=== PATIENT | female | born 1940 | race Caucasian/White ===

== ENCOUNTER 2024-11-05 20:53 | Outpatient (REF) | payer MEDICARE, SELFPAY ==
[2024-11-05 19:38] LABS: Abs Immature Grans 0.02 10^3/uL (0.0-0.06); Absolute Basophil Count 0.02 10^3/uL (0.0-0.2); Absolute Eosinophil Count 0.12 10^3/uL (0.0-0.7); Absolute Lymphocyte Count 0.33 10^3/uL (1.2-3.4); Absolute Monocyte Count 0.49 10^3/uL (0.1-0.8); Absolute Neutrophil Count 3.77 10^3/uL (1.2-6.7); Basophils % 0.4 %; Eosinophils % 2.5 %; HCT 35.9 % (36.0-46.0); HGB 11.6 g/dL (11.2-15.7); Immature Grans % 0.4 %; Lymphocytes % 6.9 %; MCH 32.9 pg (27.0-33.0); MCHC 32.3 % (32.0-36.0); MCV 102 fL (80-95); MPV 9.9 fL (8.0-11.0); Monocytes % 10.3 %; Neutrophils % 79.5 %; Platelet Count 285 10^3/uL (130-400); RBC 3.53 10^6/uL (3.93-5.22); RDW 14.6 % (11.7-14.6); RDW-SD 54.7 fL; WBC 4.75 10^3/uL (4.4-10.8)
[2024-11-05 20:25] LABS: Hemoglobin A1C 6.6 % (<5.7)
[2024-11-05 20:55] LABS: ALT 24 U/L (14-59); AST 15 U/L (15-37); Albumin 3.7 g/dL (3.4-5.0); Alkaline Phosphatase 91 U/L (46-116); Anion Gap 6.5 mmol/L (3-11); BUN 17 mg/dL (7-18); Bilirubin, Total 0.24 mg/dL (0.2-1.0); CO2 31.5 mmol/L (21.0-32.0); CREATININE 0.8 mg/dL (0.55-1.02); Calcium 9.4 mg/dL (8.5-10.1); Chloride 104 mmol/L (98-107); Estimated GFR 73.06 (mL/min/1.73m2); Ferritin 104 ng/mL (8-252); Folate 16.4 ng/mL (8.6-20.0); Glucose 163 mg/dL (74-106); Magnesium 2.2 mg/dL (1.8-2.4); Potassium 4.4 mmol/L (3.5-5.1); Sodium 142 mmol/L (136-145); TSH (W/Ref FT4) 4.11 uIU/mL (0.36-3.74); Total Protein 7.1 g/dL (6.4-8.2); Vitamin B12 351 pg/mL (193-986); Vitamin D 25 Total 24.8 ng/mL (30-100)
[2024-11-05 21:18] LABS: NT-proBNP 629 pg/mL (<300)
[2024-11-05 21:34] LABS: Iron 47 ug/dL (50-170); Total Iron Binding Capacity 330 ug/dL (250-450); Transferrin Sat 14 % (15-50)
[2024-11-06 22:26] LABS: T4, Free 1.2 ng/dL (0.8-2.2)
[2024-11-08 16:59] LABS: Lamotrigine 2.3 mcg/mL (3.0-15.0)
== END 2024-11-05 20:54 | disposition home or self-care (01) ==
LOC: LBN 20:53
PROVIDERS: PCP Legal Medicine; Visit Provider Nurse Practitioner Gerontology
DX: E11.9 Type 2 diabetes mellitus without complications (principal); E03.9 Hypothyroidism, unspecified; R53.82 Chronic fatigue, unspecified; I11.9 Hypertensive heart disease without heart failure; G89.4 Chronic pain syndrome; D52.9 Folate deficiency anemia, unspecified; E83.42 Hypomagnesemia
CPT/HCPCS: 80053; 80175; 82306; 82607; 82728; 82746; 83036; 83540; 83550; 83735; 83880; 84439; 84443; 85025

== ENCOUNTER 2024-12-21 17:54 | Outpatient (REF) | payer MEDICARE, SELFPAY ==
[2024-12-21 17:24] LABS: Abs Immature Grans 0.02 10^3/uL (0.0-0.06); Absolute Basophil Count 0.02 10^3/uL (0.0-0.2); Absolute Eosinophil Count 0.12 10^3/uL (0.0-0.7); Absolute Lymphocyte Count 0.34 10^3/uL (1.2-3.4); Absolute Monocyte Count 0.65 10^3/uL (0.1-0.8); Absolute Neutrophil Count 4.19 10^3/uL (1.2-6.7); Basophils % 0.4 %; Eosinophils % 2.2 %; HCT 34.5 % (36.0-46.0); HGB 11.2 g/dL (11.2-15.7); Immature Grans % 0.4 %; Lymphocytes % 6.4 %; MCH 32.6 pg (27.0-33.0); MCHC 32.5 % (32.0-36.0); MCV 100 fL (80-95); MPV 10.2 fL (8.0-11.0); Monocytes % 12.2 %; Neutrophils % 78.4 %; Platelet Count 234 10^3/uL (130-400); RBC 3.44 10^6/uL (3.93-5.22); RDW-SD 59.7 fL; WBC 5.34 10^3/uL (4.4-10.8)
[2024-12-21 17:32] LABS: Anion Gap 11.2 mmol/L (3-11); BUN 29 mg/dL (7-18); CO2 28.8 mmol/L (21.0-32.0); Calcium 9.8 mg/dL (8.5-10.1); Chloride 104 mmol/L (98-107); Glucose 188 mg/dL (74-106); Magnesium 1.8 mg/dL (1.8-2.4); Potassium 4.4 mmol/L (3.5-5.1); Sodium 144 mmol/L (136-145)
[2024-12-24 12:29] LABS: Lamotrigine 4.8 mcg/mL (3.0-15.0)
== END 2024-12-21 17:55 | disposition home or self-care (01) ==
LOC: LBN 17:54
PROVIDERS: PCP Legal Medicine; Visit Provider Nurse Practitioner Gerontology
DX: E83.42 Hypomagnesemia (principal); D50.9 Iron deficiency anemia, unspecified; E87.6 Hypokalemia
CPT/HCPCS: 80048; 80175; 83735; 85025

== ENCOUNTER 2025-02-18 10:52 | Emergency (ER) | payer MEDICARE, SELFPAY ==
[2025-02-18] VITALS (13 sets, daily range): BP systolic 142–155; BP diastolic 51–104; PULSE 57–74; RESP 12–24; TEMP 36.4; O2SAT 97–99
--- NOTE | 2025-02-18 11:15 | DI.RAD_ITS ---
Exam(s) XR HAND RT COMPLETE EXAM: XR HAND RT COMPLETE CLINICAL HISTORY: ecchymosis post fall. TECHNIQUE: 2D digital imaging was performed. COMPARISON: No exams were available for comparison FINDINGS: 3 views No evidence of acute fracture in the hand. No radiopaque foreign bodies. There are moderate degenerative in all of the DIP joints. Metacarpophalangeal joints appear unremarkable. Mild degenerative changes in the PIP joints. No erosions. IMPRESSION: No head fractures evident. DATA REPOSITORY: RADIATION DOSE DELIVERED:
--- NOTE | 2025-02-18 11:15 | DI.RAD_ITS ---
Exam(s) XR KNEE RT 3V AP,LAT,JOSE EXAM: XR KNEE RT 3V AP,LAT,JOSE CLINICAL HISTORY: pain post fall. TECHNIQUE: 2D digital imaging was performed. COMPARISON: No exams were available for comparison FINDINGS: 3 portable views No evidence of fracture nor obvious joint effusion. Mild degenerative narrowing of the medial compartment noted. No osseous lesions. No radiopaque foreign bodies. IMPRESSION: No obvious knee fracture evident. No joint effusion seen. DATA REPOSITORY: RADIATION DOSE DELIVERED:
--- NOTE | 2025-02-18 11:15 | DI.RAD_ITS ---
Exam(s) XR FEMUR RT EXAM: XR FEMUR RT CLINICAL HISTORY: pain knee and hip post fall. TECHNIQUE: 2D digital imaging was performed. COMPARISON: No exams were available for comparison FINDINGS: Two views-AP and lateral No evidence of right hip fracture. No obvious degenerative changes in the hip joint. No femur fracture. Bone density is age-appropriate. No osseous lesions evident. IMPRESSION: No evidence of right hip nor femur fracture. DATA REPOSITORY: RADIATION DOSE DELIVERED:
--- NOTE | 2025-02-18 11:15 | DI.RAD_ITS ---
Exam(s) XR CHEST 2V PA LATERAL EXAM: XR CHEST 2V PA LATERAL CLINICAL HISTORY: fall. TECHNIQUE: 2D digital imaging was performed. COMPARISON: No exams were available for comparison FINDINGS: 2 views: There is mild cardiomegaly Mediastinum not widened. No infiltrates nor pleural effusions. No pulmonary edema. No obvious fractures. IMPRESSION: No acute pulmonary findings.Mild cardiomegaly. No pulmonary edema. DATA REPOSITORY: RADIATION DOSE DELIVERED:
--- NOTE | 2025-02-18 11:15 | DI.RAD_ITS ---
Exam(s) XR WRIST RT COMPLETE EXAM: XR WRIST RT COMPLETE CLINICAL HISTORY: pain post fall. TECHNIQUE: 2D digital imaging was performed. COMPARISON: No exams were available for comparison FINDINGS: 3 views No evidence of acute fracture nor dislocation nor significant ulnar variance. Scaphoid and scapholunate distance are normal. Degenerative changes noted at the triscaphe joint. First carpometacarpal joint appears unremarkable. Incidentally noted is a corticated calcific density seen in the distal dorsal medial forearm just above the wrist level measuring 5 by 3 mm. This does not have the appearance of acute fracture fragment. This is on the dorsal-medial aspect of the. IMPRESSION: No acute fractures of the wrist. DATA REPOSITORY: RADIATION DOSE DELIVERED:
--- NOTE | 2025-02-18 11:16 | DI.RAD_ITS ---
Exam(s) XR PELVIS AP EXAM: XR PELVIS AP CLINICAL HISTORY: pain post fall. TECHNIQUE: 2D digital imaging was performed. COMPARISON: No exams were available for comparison FINDINGS: Single-view No evidence of pelvic nor hip fractures. Calcified structure above the right iliac crest may be gallstone. IMPRESSION: No pelvic nor hip fractures evident. The entire left hip is not included in the field of view. DATA REPOSITORY: RADIATION DOSE DELIVERED:
[2025-02-18] MEDS: oxyCODONE 5 MG TAB 2.5 MG PO (11:30)
--- NOTE | 2025-02-18 15:03 | W.ED.GENAD ---
Discharge Plan Disposition Patient Disposition: Home Discharge Details Clinical Impression: Contusion of hand, Contusion of knee, right Primary Care Provider: Mikala Martinez ED Provider: Shantel Calloway Home Meds and New Rx's Prescriptions: Continued bisacodyl [Laxative (bisacodyl)] 1 tab PO DAILY polyethylene glycol 3350 [ClearLax] 17 gram/dose powder 17 g PO DAILY lorazepam [Ativan] 0.5 mg tablet 0.5 mg PO DAILY acetaminophen 500 mg capsule 1,000 mg PO TID Patient Comments: For unspecified OA per [facility] 02/18/25 vitamin B complex [B-Complex] Tablet 1 tab PO DAILY olanzapine 5 mg tablet 5 mg PO BID citalopram [Celexa] 10 mg tablet 10 mg PO DAILY melatonin 3 mg capsule 3 mg PO QHS memantine [Namenda] 10 mg tablet 10 mg PO BID trazodone 50 mg tablet 50 mg PO QHS levothyroxine [Euthyrox] 175 mcg tablet 175 mcg PO DAILY metformin 500 mg tablet 500 mg PO DAILY furosemide [Lasix] 40 mg tablet 40 mg PO DAILY lamotrigine [Lamictal] 100 mg tablet 100 mg PO BID Biotene Oralbalance (glycerin) Gel 1 applic mucous membrane Q2H PRN Patient Comments: 1 inch ribbon by mouth every 2 hours PRN carboxymethylcellulose sodium [Artificial Tears (cmc)] 1 drp ophthalmic (eye) QID PRN Patient Comments: 1 solution in each eye four times daily PRN for dry eyes for Sjogren Syndrome diclofenac sodium [Arthritis Pain (diclofenac)] 1 % gel 2 g topical BID PRN Patient Comments: 2 gram apply topically per knee twice daily PRN for unspecified OA per [facility] 02/18/25 Rx Instructions: apply to single elbow, wrist or hand; for hand includes palm/fingers/back of hand Discharge Instructions Additional Instructions: keep wounds clean and dry no fracture on xrays of hand, wrist, chest, knee, or hip weightbearing as tolerated tylenol for pain return with new or worsening complaints Referrals: Mikala Martinez [Primary Care Provider, Medicine] Discharge Data Discharge Date/Time-TO BE ENTERED AT DEPARTURE: 02/18/25 14:04 HPI General Date/Time Provider Initiated Documentation: 02/18/25 10:57. HPI Narrative: The patient is an 87-year-old female with nonischemic cardiomyopathy, hypertension, anxiety, severe bundle-branch block, and dementia, presenting with worsening anxiety. She has longstanding anxiety and was started on medication a few weeks ago but feels they have been unhelpful. Her metoprolol dose was increased at this time. She feels lightheaded, overwhelmed, and nauseous. No current chest pain or shortness of breath. She states her anxiety feels similar to previous episodes. She is alert and oriented but initially stuttering and tangential. No suicidality reported. Her , who had Alzheimer's, was placed in long-term care yesterday. Despite having family living with her, she feels anxious about living independently, as she has never been left alone before. Related Data Home Medications ?Medication ?Instructions ?Recorded ?Confirmed acetaminophen 500 mg capsule 1,000 mg PO TID 02/18/25 02/18/25 bisacodyl 1 tab PO DAILY 02/18/25 02/18/25 carboxymethylcellulose sodium 1 drp ophthalmic (eye) QID PRN 02/18/25 02/18/25 citalopram 10 mg tablet (Celexa) 10 mg PO DAILY 02/18/25 02/18/25 diclofenac sodium 1 % topical gel 2 g topical BID PRN 02/18/25 02/18/25 (Arthritis Pain (diclofenac)) furosemide 40 mg tablet (Lasix) 40 mg PO DAILY 02/18/25 02/18/25 lamotrigine 100 mg tablet 100 mg PO BID 02/18/25 02/18/25 (Lamictal) levothyroxine 175 mcg tablet 175 mcg PO DAILY 02/18/25 02/18/25 (Euthyrox) lorazepam 0.5 mg tablet (Ativan) 0.5 mg PO DAILY 02/18/25 02/18/25 melatonin 3 mg capsule 3 mg PO QHS 02/18/25 02/18/25 memantine 10 mg tablet (Namenda) 10 mg PO BID 02/18/25 02/18/25 metformin 500 mg tablet 500 mg PO DAILY 02/18/25 02/18/25 olanzapine 5 mg tablet 5 mg PO BID 02/18/25 02/18/25 polyethylene glycol 3350 17 17 g PO DAILY 02/18/25 02/18/25 gram/dose oral powder (ClearLax) saliva stimulant comb. no.7 1 applic mucous membrane Q2H PRN 02/18/25 02/18/25 (Biotene Oralbalance (glycerin) mucosal gel) trazodone 50 mg tablet 50 mg PO QHS 02/18/25 02/18/25 vitamin B complex (B-Complex 1 tab PO DAILY 02/18/25 02/18/25 tablet) Allergies Allergy/AdvReac Type Severity Reaction Status Date / Time hydroxychloroquine Allergy Unknown Unknown Verified 02/18/25 11:08 loratadine Allergy Unknown Unknown Verified 02/18/25 11:08 General Stated Complaint: Orthopedic AMADA: 3 Exam Narrative Exam Narrative: General Appearance: Alert and oriented. Vital signs: Within normal limits. HEENT: Dry mucous membranes. Pupils equal, round, and reactive to light and accommodation. Respiratory: Within normal limits. Skin: No visible trauma. Extremities: No peripheral edema. Neurological: Cranial nerves II-XII intact. Negative [id number], heel alejandre, and pronator drift tests. Course Vital Signs Vital signs: Vital Signs Temperature 36.4 C 02/18/25 10:46 Pulse 70 02/18/25 10:46 Respiratory Rate 13 02/18/25 10:46 Blood Pressure 145/51 H 02/18/25 10:46 Pulse Oximetry 98 02/18/25 10:46 Temperature 36.4 C 02/18/25 10:46 Temperature Source Oral 02/18/25 10:46 Pulse 66 02/18/25 12:31 Pulse 59 L 02/18/25 12:50 Respiratory Rate 14 02/18/25 12:50 Blood Pressure 142/69 H 02/18/25 12:31 Blood Pressure Mean 97 02/18/25 12:31 Blood Pressure Position Sitting 02/18/25 10:46 Pulse Oximetry 97 02/18/25 12:31 Oxygen Delivery Method Room Air 02/18/25 10:46 Oxygen Flow Rate 0 02/18/25 10:46 Pain Level 5 02/18/25 10:46 Medical Decision Making CBC within normal limits. Sodium 133. Creatinine 0.5. Glucose 110. Urinalysis without infection but some RBCs. Magnesium and potassium within normal limits. EKG shows baseline bundle branch block. Initial Assessment: 87-year-old female with history of nonischemic cardiomyopathy, hypertension, anxiety, severe bundle-branch block, and dementia, presenting with worsening anxiety following 's placement in long-term care. Feels lightheaded, overwhelmed, and nauseous. No current chest pain or shortness of breath. Alert and oriented, stuttering initially, tangential. Sinus bradycardia, no respiratory distress, dry mucous membranes, pupils equal, round, reactive to light and accommodation, cranial nerves II through XII intact, negative gvuvaa-pzas-alhorm, negative heel alejandre, negative pronator drift, no visible sign of trauma, no peripheral edema. ED Course: - Given 0.5 mg oral Ativan, marked improvement in anxiety, speech, and stress levels. - Labs reassuring: EKG shows baseline bundle branch block, CBC within normal limits, sodium 133, creatinine 0.5, glucose 110, urinalysis without evidence of infection, magnesium and potassium within normal limits. - Communication with PCP attempted but unsuccessful; nursing staff informed and will relay information to Dr. Perez. - Care management involved due to panic and anxiety, considering geriatric placement and depression management. Final Assessment: Patient's anxiety improved with Ativan. Labs and EKG reassuring. Considering adjustment of metoprolol dose and alternative anxiety medications. Care management involved for geriatric placement and depression management. Clinical Impression: - Anxiety Disposition: - Admission: Patient requested admission for general psych placement. MDM Components Evaluation: - Number of Differential Diagnoses or Management Options: Anxiety - Amount and Complexity of Data Reviewed: EKG, CBC, sodium, creatinine, glucose, urinalysis, magnesium, potassium - Risk of Complication and Morbidity or Mortality: Elevated blood pressure may contribute to anxiety; potential need to adjust metoprolol dose. PFSH All Active Problems (Updated 02/18/25 @ 12:59 by KIZZY Shane) Contusion of knee, right (Acute) Contusion of hand (Acute) Social History Smoking risk assessment performed?: No Housing: [facility] Do you feel safe at home: Yes Do you feel safe in your relationship?: Yes
--- NOTE | 2025-03-04 18:05 | W.ED.GENAD ---
Discharge Plan Disposition Patient Disposition: Home Discharge Details Clinical Impression: Contusion of hand, Contusion of knee, right Primary Care Provider: Mikala Martinez ED Provider: Shantel Calloway Home Meds and New Rx's Prescriptions: Continued bisacodyl [Laxative (bisacodyl)] 1 tab PO DAILY polyethylene glycol 3350 [ClearLax] 17 gram/dose powder 17 g PO DAILY lorazepam [Ativan] 0.5 mg tablet 0.5 mg PO DAILY acetaminophen 500 mg capsule 1,000 mg PO TID Patient Comments: For unspecified OA per [facility] 02/18/25 vitamin B complex [B-Complex] Tablet 1 tab PO DAILY olanzapine 5 mg tablet 5 mg PO BID citalopram [Celexa] 10 mg tablet 10 mg PO DAILY melatonin 3 mg capsule 3 mg PO QHS memantine [Namenda] 10 mg tablet 10 mg PO BID trazodone 50 mg tablet 50 mg PO QHS levothyroxine [Euthyrox] 175 mcg tablet 175 mcg PO DAILY metformin 500 mg tablet 500 mg PO DAILY furosemide [Lasix] 40 mg tablet 40 mg PO DAILY lamotrigine [Lamictal] 100 mg tablet 100 mg PO BID Biotene Oralbalance (glycerin) Gel 1 applic mucous membrane Q2H PRN Patient Comments: 1 inch ribbon by mouth every 2 hours PRN carboxymethylcellulose sodium [Artificial Tears (cmc)] 1 drp ophthalmic (eye) QID PRN Patient Comments: 1 solution in each eye four times daily PRN for dry eyes for Sjogren Syndrome diclofenac sodium [Arthritis Pain (diclofenac)] 1 % gel 2 g topical BID PRN Patient Comments: 2 gram apply topically per knee twice daily PRN for unspecified OA per [facility] 02/18/25 Rx Instructions: apply to single elbow, wrist or hand; for hand includes palm/fingers/back of hand Discharge Instructions Additional Instructions: keep wounds clean and dry no fracture on xrays of hand, wrist, chest, knee, or hip weightbearing as tolerated tylenol for pain return with new or worsening complaints Referrals: Mikala Martinez [Primary Care Provider, Medicine] Discharge Data Discharge Date/Time-TO BE ENTERED AT DEPARTURE: 02/18/25 14:04 HPI General Date/Time Provider Initiated Documentation: 02/18/25 10:57. HPI Narrative: This is an 85-year-old female that presents via ambulance from the [facility] after a fall 2 days ago that was witnessed and mechanical in nature reportedly. 2 presents for assessment of right hand injury and right knee pain. Denies any history of coagulopathy or head injury denies any additional complaints at this time. Related Data Home Medications ?Medication ?Instructions ?Recorded ?Confirmed acetaminophen 500 mg capsule 1,000 mg PO TID 02/18/25 02/18/25 bisacodyl 1 tab PO DAILY 02/18/25 02/18/25 carboxymethylcellulose sodium 1 drp ophthalmic (eye) QID PRN 02/18/25 02/18/25 citalopram 10 mg tablet (Celexa) 10 mg PO DAILY 02/18/25 02/18/25 diclofenac sodium 1 % topical gel 2 g topical BID PRN 02/18/25 02/18/25 (Arthritis Pain (diclofenac)) furosemide 40 mg tablet (Lasix) 40 mg PO DAILY 02/18/25 02/18/25 lamotrigine 100 mg tablet 100 mg PO BID 02/18/25 02/18/25 (Lamictal) levothyroxine 175 mcg tablet 175 mcg PO DAILY 02/18/25 02/18/25 (Euthyrox) lorazepam 0.5 mg tablet (Ativan) 0.5 mg PO DAILY 02/18/25 02/18/25 melatonin 3 mg capsule 3 mg PO QHS 02/18/25 02/18/25 memantine 10 mg tablet (Namenda) 10 mg PO BID 02/18/25 02/18/25 metformin 500 mg tablet 500 mg PO DAILY 02/18/25 02/18/25 olanzapine 5 mg tablet 5 mg PO BID 02/18/25 02/18/25 polyethylene glycol 3350 17 17 g PO DAILY 02/18/25 02/18/25 gram/dose oral powder (ClearLax) saliva stimulant comb. no.7 1 applic mucous membrane Q2H PRN 02/18/25 02/18/25 (Biotene Oralbalance (glycerin) mucosal gel) trazodone 50 mg tablet 50 mg PO QHS 02/18/25 02/18/25 vitamin B complex (B-Complex 1 tab PO DAILY 02/18/25 02/18/25 tablet) Allergies Allergy/AdvReac Type Severity Reaction Status Date / Time hydroxychloroquine Allergy Unknown Unknown Verified 02/18/25 11:08 loratadine Allergy Unknown Unknown Verified 02/18/25 11:08 General Stated Complaint: Orthopedic AMADA: 3 Exam Narrative Exam Narrative: Alert and afebrile female on assess no chest wall lungs clear to auscultation for reactive to light and accommodation no midline neck tenderness no tenderness or visible sign of trauma neurovascularly intact all 4 extremities GCS 15, tenderness to right hand ecchymosis tenderness right wrist, tenderness to right hip mild no visible sign of trauma right knee with swelling distal pulses intact Course Vital Signs Vital signs: Vital Signs Temperature 36.4 C 02/18/25 10:46 Pulse 70 02/18/25 10:46 Respiratory Rate 13 02/18/25 10:46 Blood Pressure 145/51 H 02/18/25 10:46 Pulse Oximetry 98 02/18/25 10:46 Temperature 36.4 C 02/18/25 10:46 Temperature Source Oral 02/18/25 10:46 Pulse 66 02/18/25 12:31 Pulse 59 L 02/18/25 12:50 Respiratory Rate 14 02/18/25 12:50 Blood Pressure 142/69 H 02/18/25 12:31 Blood Pressure Mean 97 02/18/25 12:31 Blood Pressure Position Sitting 02/18/25 10:46 Pulse Oximetry 97 02/18/25 12:31 Oxygen Delivery Method Room Air 02/18/25 10:46 Oxygen Flow Rate 0 02/18/25 10:46 Pain Level 5 02/18/25 10:46 Medical Decision Making 85-year-old female presenting 2 days post fall with swelling to right hand and right knee pain from the assisted living facility where she resides. I ordered x-rays for further evaluation of his left send head injury and patient is at her baseline mentation no indication for head or neck imaging at this time based on my physical assessment. Chest x-ray was ordered secondary to fall and age which does not show evidence of acute abnormality, right femur, right hand and right knee right pelvis and right wrist were all ordered and interpreted by the radiologist without acute fractures noted, given right wrist splint and some Tylenol and patient is requesting discharge home she has limited ambulation at baseline and was transferring when the event occurred and I think it is reasonable to discharge her back to the assisted living. Return precautions reviewed and patient expressed understanding PFSH All Active Problems (Updated 02/18/25 @ 12:59 by KIZZY Shane) Contusion of knee, right (Acute) Contusion of hand (Acute) Social History Smoking risk assessment performed?: No Housing: [facility] Do you feel safe at home: Yes Do you feel safe in your relationship?: Yes
== END 2025-02-18 14:04 | disposition home or self-care (01) ==
PROVIDERS: Emergency Provider Physician Assistant; PCP Legal Medicine
DX: S60.221A Contusion of right hand, initial encounter (principal); S80.01XA Contusion of right knee, initial encounter; W19.XXXA Unspecified fall, initial encounter
CPT/HCPCS: 99284; 99283; 73552; 73562; 71046; 72170; 73110; 73130

== ENCOUNTER 2025-05-17 19:04 | Outpatient (REF) | payer MEDICARE, SELFPAY ==
[2025-05-17 20:50] LABS: ALT 22 U/L (14-59); AST 17 U/L (15-37); Albumin 3.4 g/dL (3.4-5.0); Alkaline Phosphatase 92 U/L (46-116); Anion Gap 9.6 mmol/L (3-11); BUN 17 mg/dL (7-18); Bilirubin, Total 0.3 mg/dL (0.2-1.0); CO2 30.4 mmol/L (21.0-32.0); Calcium 9.7 mg/dL (8.5-10.1); Chloride 99 mmol/L (98-107); Estimated GFR 72.61 (mL/min/1.73m2); Glucose 203 mg/dL (74-106); Potassium 3.7 mmol/L (3.5-5.1); Sodium 139 mmol/L (136-145); Total Protein 6.9 g/dL (6.4-8.2)
== END 2025-05-17 19:05 | disposition home or self-care (01) ==
LOC: LBN 19:04
PROVIDERS: PCP Legal Medicine; Visit Provider Nurse Practitioner Gerontology
DX: Z51.81 Encounter for therapeutic drug level monitoring (principal); D63.1 Anemia in chronic kidney disease; E87.8 Other disorders of electrolyte and fluid balance, not elsewhere classified
CPT/HCPCS: 80053; 80175

== ENCOUNTER 2025-05-21 10:44 | Emergency (ER) | payer MEDICARE, SELFPAY ==
[2025-05-21 10:50] VITALS: BP 141/88; PULSE 68; RESP 16; TEMP 36; O2SAT 98
[2025-05-21] MEDS: Lidocaine/Epinephri/Tetracaine Topical Gel 3 ML TP (10:52)
[2025-05-21] MEDS: LORazepam 0.5 MG TAB PO (11:01)
--- NOTE | 2025-05-21 11:05 | W.ED.GENAD ---
Discharge Plan Disposition Patient Disposition: Alf Facility(SNF) Condition: Stable Discharge Details Clinical Impression: Laceration of left ear, external Primary Care Provider: Mikala Martinez ED Provider: Adriel Ramirez [place] Meds and New Rx's Prescriptions: Continued bisacodyl [Laxative (bisacodyl)] 1 tab PO DAILY polyethylene glycol 3350 [ClearLax] 17 gram/dose powder 17 g PO DAILY acetaminophen 500 mg capsule 1,000 mg PO TID Patient Comments: For unspecified OA per [facility] 02/18/25 vitamin B complex [B-Complex] Tablet 1 tab PO DAILY olanzapine 5 mg tablet 5 mg PO QPM citalopram [Celexa] 10 mg tablet 10 mg PO DAILY levothyroxine [Euthyrox] 175 mcg tablet 175 mcg PO DAILY metformin 500 mg tablet 250 mg PO BID furosemide [Lasix] 40 mg tablet 40 mg PO DAILY lamotrigine [Lamictal] 100 mg tablet 100 mg PO BID Biotene Oralbalance (glycerin) Gel 1 applic mucous membrane Q2H PRN Patient Comments: 1 inch ribbon by mouth every 2 hours PRN carboxymethylcellulose sodium [Artificial Tears (cmc)] 1 drp ophthalmic (eye) QID PRN Patient Comments: 1 solution in each eye four times daily PRN for dry eyes for Sjogren Syndrome diclofenac sodium [Arthritis Pain (diclofenac)] 1 % gel 2 g topical BID PRN Patient Comments: 2 gram apply topically per knee twice daily PRN for unspecified OA per [facility] 02/18/25 Rx Instructions: apply to single elbow, wrist or hand; for hand includes palm/fingers/back of hand clonazepam 0.5 mg tablet 0.5 mg PO BID lamotrigine 25 mg tablet 25 mg PO BID Discharge Instructions Instructions: Laceration Repair With Stitches ED Additional Instructions: You were given a Boostrix tetanus shot today. Keep wound clean and protected. Sutures should be removed in 8-10 days. Please follow-up with your primary care physician. Return to the emergency department immediately for any worsening or new concerning symptoms. Referrals: Mikala Martinez [Primary Care Provider, Medicine] [facility] General Mode of arrival: EMS. Date/Time Provider Initiated Documentation: 05/21/25 10:48. Limitations to Documentation: altered mental status. Information obtained by: patient. HPI Narrative: 85-year-old female presents with ear laceration. Patient arrives from residential by EMS. intermediate staff unclear as to how she lacerated her ear, question on avoid her left. Patient unable to provide history secondary to dementia. Related Data Home Medications ?Medication ?Instructions ?Recorded ?Confirmed acetaminophen 500 mg capsule 1,000 mg PO TID 02/18/25 05/21/25 bisacodyl 1 tab PO DAILY 02/18/25 05/21/25 carboxymethylcellulose sodium 1 drp ophthalmic (eye) QID PRN 02/18/25 05/21/25 citalopram 10 mg tablet (Celexa) 10 mg PO DAILY 02/18/25 05/21/25 diclofenac sodium 1 % topical gel 2 g topical BID PRN 02/18/25 05/21/25 (Arthritis Pain (diclofenac)) furosemide 40 mg tablet (Lasix) 40 mg PO DAILY 02/18/25 05/21/25 lamotrigine 100 mg tablet 100 mg PO BID 02/18/25 05/21/25 (Lamictal) levothyroxine 175 mcg tablet 175 mcg PO DAILY 02/18/25 05/21/25 (Euthyrox) metformin 500 mg tablet 250 mg PO BID 02/18/25 05/21/25 olanzapine 5 mg tablet 5 mg PO QPM 02/18/25 05/21/25 polyethylene glycol 3350 17 17 g PO DAILY 02/18/25 05/21/25 gram/dose oral powder (ClearLax) saliva stimulant comb. no.7 1 applic mucous membrane Q2H PRN 02/18/25 05/21/25 (Biotene Oralbalance (glycerin) mucosal gel) vitamin B complex (B-Complex 1 tab PO DAILY 02/18/25 05/21/25 tablet) clonazepam 0.5 mg tablet 0.5 mg PO BID 05/21/25 05/21/25 lamotrigine 25 mg tablet 25 mg PO BID 05/21/25 05/21/25 Allergies Allergy/AdvReac Type Severity Reaction Status Date / Time hydroxychloroquine Allergy Unknown Unknown Verified 05/21/25 10:42 loratadine Allergy Unknown Unknown Verified 05/21/25 10:42 General Stated Complaint: Laceration AMADA: 4 Review of Systems Unobtainable due to mental status Exam Const General: cooperative Orientation: alert [facility] Head: no Edwards's sign, palpable skull fracture, no raccoon eyes and No periorbital ecchymosis Outer ear/TM images:  1. lac full thickness Face and sinus: normal facial exam Neuro Cognition: abnormal cognition Course Vital Signs Vital signs: Vital Signs Temperature 36.0 C L 05/21/25 10:50 Pulse 68 05/21/25 10:50 Respiratory Rate 16 05/21/25 10:50 Blood Pressure 141/88 H 05/21/25 10:50 Pulse Oximetry 98 05/21/25 10:50 Temperature 36.0 C L 05/21/25 10:50 Pulse 68 05/21/25 10:50 Respiratory Rate 16 05/21/25 10:50 Blood Pressure 141/88 H 05/21/25 10:50 Pulse Oximetry 98 05/21/25 10:50 Procedure Laceration Laceration 1: Date of Procedure: 05/21/25 Time of procedure: 12:03 Provider that performed the procedure: Adriel Ramirez Standard Time Out Performed: Yes Patient Consented: Emergent Case Site: face (left ear) Side (If applicable): left Description: flap Depth: simple, single layer Local anesthetic: Lidocaine 1% Amount of anesthesia used (mL): 1 Pre-repair:: wound explored and irrigated extensively Skin layer closed with: other (prolene) Suture size: 5-0 Number of sutures:: 4 Technique: simple, interrupted Complications: None Medical Decision Making 85-year-old female with dementia here with laceration left ear. LET applied. Ativan given for anxiety. Wound was irrigated and cleansed. Wound repaired without complication. Sterile dressing applied by nursing. Tetanus booster provided as last known tetanus 2013. Plan for discharge back to nursing facility. Quality:SDOH Health Related Social Needs: Health related social needs details resident of the [facility] dementia [facility] All Active Problems (Updated 05/21/25 @ 11:16 by Adriel Ramirez MD) Laceration of left ear, external (Acute) Social History Smoking/Tobacco Use Status: Unknown Smoking risk assessment performed?: Yes Substance use type: unknown Housing: residential Do you feel safe at home: Yes Do you feel safe in your relationship?: Yes
[2025-05-21] MEDS: Diph,Pertuss(Acell),Tet Vac/Pf 0.5 ML SYR IM (11:19)
[2025-05-21] MEDS: Lidocaine 1% Pres-Free 5 ML VIAL (12:09)
[2025-05-21 12:27] VITALS: BP 165/75; PULSE 75; RESP 16; O2SAT 98
== END 2025-05-21 13:01 | disposition skilled nursing facility (03) ==
PROVIDERS: Emergency Provider Student in an Organized Health Care Education/Training Program; PCP Legal Medicine
DX: S01.312A Laceration without foreign body of left ear, initial encounter (principal); Z23 Encounter for immunization; X58.XXXA Exposure to other specified factors, initial encounter
CPT/HCPCS: 12011; 90471; 90715; 99284; 99283; J2003